=== PATIENT | male | born 1950 | race Hispanic/Latino ===

== ENCOUNTER → 2018-01-15 | Outpatient (CLI) | payer OTHER, MEDICARE ==
[~2018-01-15] MED LIST: ASPI-1197 PO; CLOP75TA14 PO; HONEY 1 APPL/ML TUBE TP ONE; INSU100I21 SQ; INSU200I SQ; LIDOCAINE/PRILOCAINE CREAM 5GM TUBE TP ONE; LOSA50TA37 PO; METF10004 PO; METO-408 PO; SIMV40TA5 PO; SULF1TAB3 PO; TAMS-1 PO
[2018-01-15 17:14] VITALS: BP 106/63
== END | disposition home or self-care (01) ==
LOC: WHH 14:55
PROVIDERS: ATTEND Family Medicine
DX: E11.622 Type 2 diabetes mellitus with other skin ulcer (principal); L89.313 Pressure ulcer of right buttock, stage 3; L98.411 Non-pressure chronic ulcer of buttock limited to breakdown of skin; G81.91 Hemiplegia, unspecified affecting right dominant side; I10 Essential (primary) hypertension; E11.51 Type 2 diabetes mellitus with diabetic peripheral angiopathy without gangrene; D64.9 Anemia, unspecified; Z86.73 Personal history of transient ischemic attack (TIA), and cerebral infarction without residual deficits
CPT/HCPCS: 11042; A6197; A6402; J3490

== ENCOUNTER → 2018-01-29 | Outpatient (CLI) | payer OTHER, MEDICARE ==
[~2018-01-29] MED LIST changes: -HONEY 1 APPL/ML TUBE TP ONE; -LIDOCAINE/PRILOCAINE CREAM 5GM TUBE TP ONE
[2018-01-29 15:36] VITALS: BP 125/68
== END | disposition home or self-care (01) ==
LOC: WHH 14:45
PROVIDERS: ATTEND Family Medicine
DX: E11.622 Type 2 diabetes mellitus with other skin ulcer (principal); L89.313 Pressure ulcer of right buttock, stage 3; L98.411 Non-pressure chronic ulcer of buttock limited to breakdown of skin; G81.91 Hemiplegia, unspecified affecting right dominant side; I10 Essential (primary) hypertension; E11.51 Type 2 diabetes mellitus with diabetic peripheral angiopathy without gangrene; D64.9 Anemia, unspecified; Z86.73 Personal history of transient ischemic attack (TIA), and cerebral infarction without residual deficits
CPT/HCPCS: A6196; A6402; G0463

== ENCOUNTER 2018-02-05 14:20 | Outpatient (CLI) | payer OTHER, MEDICARE ==
[2018-02-05 15:43] VITALS: BP 100/83
[2018-04-05] MEDS ORDERED: TAMS-1 PO (14:25)
[2018-04-05] MEDS ORDERED: INSU100I21 SQ ×2 (14:25)
[2018-04-05] MEDS ORDERED: SULF1TAB3 PO (14:25)
[2018-04-05] MEDS ORDERED: METF10004 PO (14:25)
[2018-04-05] MEDS ORDERED: LOSA50TA37 PO (14:25)
[2018-04-05] MEDS ORDERED: CLOP75TA14 PO (14:25)
[2018-04-05] MEDS ORDERED: INSU200I SQ (14:25)
[2018-04-05] MEDS ORDERED: ASPI-1197 PO (14:25)
[2018-04-05] MEDS ORDERED: METO-408 PO (14:25)
[2018-04-05] MEDS ORDERED: SIMV40TA5 PO (14:25)
== END 2018-02-05 17:00 | disposition home or self-care (01) ==
LOC: WHH 14:20
PROVIDERS: ATTEND Family Medicine
DX: E11.622 Type 2 diabetes mellitus with other skin ulcer (principal); L89.313 Pressure ulcer of right buttock, stage 3; L98.411 Non-pressure chronic ulcer of buttock limited to breakdown of skin; G81.91 Hemiplegia, unspecified affecting right dominant side; I10 Essential (primary) hypertension; E11.51 Type 2 diabetes mellitus with diabetic peripheral angiopathy without gangrene; D64.9 Anemia, unspecified; Z86.73 Personal history of transient ischemic attack (TIA), and cerebral infarction without residual deficits
CPT/HCPCS: G0463

== ENCOUNTER 2018-04-08 10:03 | Day surgery (SDC) | payer OTHER, MEDICARE ==
[2018-04-05 12:22] VITALS: BP 106/71
[2018-04-05 12:25] LABS: BASOPHILS % (AUTO) 0.5 % (0.0-5.0); EOSINOPHILS % (AUTO) 1.8 % (0.0-8.0); HEMATOCRIT 36.5 % (42-54); LYMPHOCYTES % (AUTO) 27.9 % (21.0-51.0); MEAN CORPUSCULAR HEMOGLOBIN 27.2 pg (27.0-33.0); MEAN CORPUSCULAR HGB CONC 33.2 g/dL (32.0-36.0); MEAN CORPUSCULAR VOLUME 81.9 fL (79-99); MONOCYTES % (AUTO) 7.7 % (3.0-13.0); NEUTROPHILS % (AUTO) 62.1 % (40.0-77.0); PLATELET COUNT (AUTO) 221 K/uL (130-400); RED BLOOD CELL COUNT(AUTO) 4.46 MIL/uL (4.50-6.20); RED CELL DISTRIBUTION WIDTH 14.4 % (11.0-15.5)
[2018-04-05 12:53] LABS: INR 0.93 (0.85-1.15); PROTHROMBIN TIME 9.8 SEC (9.6-11.6)
[2018-04-05 12:54] LABS: POTASSIUM 3.4 mmol/L (3.5-5.1)
[2018-04-05 13:23] LABS: APPEARANCE,URINE Clear (CLEAR); BILIRUBIN,URINE Negative (NEGATIVE); COLOR,URINE Yellow (YELLOW); GLUCOSE, URINE (UA) Negative (NEGATIVE); KETONES,URINE Negative (NEGATIVE); LEUKOCYTE ESTERASE ,URINE Negative (NEGATIVE); NITRATE,URINE Negative (NEGATIVE); OCCULT BLOOD,URINE Trace (NEGATIVE); PROTEIN,URINE POS 1+ (NEGATIVE); UROBILINOGEN,URINE 0.2 mg/dL (0.2-1.0)
[2018-04-05 13:30] LABS: BACTERIA,URINE Rare /HPF (None Seen); SQUAMOUS EPITHELIAL CELL,UR Rare /HPF (0-2); WBC,URINE 0-1 /HPF (0-1)
[~2018-04-08] VITALS: Ht 167.6 cm; Wt 78.0 kg
[2018-04-08] VITALS (14 sets, daily range): BP systolic 102–122; BP diastolic 52–68
[~2018-04-08 10:03] MED LIST changes: +CEFTRIAXONE SODIUM 1 GM IVP SCH; +GENTAMICIN 80 MG/NS 100 ML PB 100 ML IV SCH
[2018-04-08] MEDS ORDERED: SODIUM CHLORIDE 0.9% 1000ML 1,000 ML IV ONE (10:14)
[2018-04-08] MEDS ORDERED: GENTAMICIN 80 MG/NS 100 ML PB 100 ML IV SCH (10:30)
[2018-04-08] MEDS: CEFTRIAXONE SODIUM 1 GM ONE ×2 (10:56→14:17)
[2018-04-08] MEDS ORDERED: MIDAZOLAM HCL 1 MG/ML 2ML VIAL ONE (13:47)
[2018-04-08] MEDS ORDERED: PROPOFOL 10 MG/ML 20ML VIAL IV ONE (13:48)
[2018-04-08] MEDS ORDERED: FENTANYL CITRATE PF 50 MCG/1 ML 2ML VIAL ONE (13:48)
[2018-04-08] MEDS ORDERED: GLYCOPYRROLATE 0.2 MG/ML 5 ML VIAL ONE (14:50)
[2018-04-08] MEDS ORDERED: NEOSTIGMINE 5MG/5ML SYR IV ONE (14:50)
== END 2018-04-08 17:25 | disposition home or self-care (01) ==
LOC: DAH 10:03
PROVIDERS: ATTEND Urology
DX: N40.1 Benign prostatic hyperplasia with lower urinary tract symptoms (principal); N41.1 Chronic prostatitis; R33.8 Other retention of urine; E11.9 Type 2 diabetes mellitus without complications; I10 Essential (primary) hypertension; Z86.73 Personal history of transient ischemic attack (TIA), and cerebral infarction without residual deficits
CPT/HCPCS: 36415; 52648; 71045; 80048; 81001; 82948 ×2; 85025; 85610; 87088; 87186; 88305; 93005; 96365; A4354; A4358; A4600; J0696; J1580 ×2; J2250; J2704; J2710; J3010; J3490; J7030 ×2

== ENCOUNTER 2021-02-19 17:59 | Emergency (ER) | payer OTHER, MEDICARE ==
[~2021-02-19 17:59] MED LIST changes: -CEFTRIAXONE SODIUM 1 GM IVP SCH; -GENTAMICIN 80 MG/NS 100 ML PB 100 ML IV SCH; -LOSA50TA37 PO; +LOSA50TA64 PO; +METF-446 PO; -METF10004 PO; +SIMV-46 PO; -SIMV40TA5 PO
[2021-02-19 18:53] LABS: BASOPHILS % (AUTO) 0.6 % (0.0-5.0); EOSINOPHILS % (AUTO) 0.1 % (0.0-8.0); HEMATOCRIT 29.8 % (42-54); LYMPHOCYTES % (AUTO) 9.6 % (21.0-51.0); MEAN CORPUSCULAR HEMOGLOBIN 25.7 pg (27.0-33.0); MEAN CORPUSCULAR HGB CONC 30.2 g/dL (32.0-36.0); MEAN CORPUSCULAR VOLUME 85.1 fL (79-99); MONOCYTES % (AUTO) 6.2 % (3.0-13.0); PLATELET COUNT (AUTO) 640 K/uL (130-400); RED CELL DISTRIBUTION WIDTH 13.9 % (11.0-15.5); WHITE BLOOD COUNT (AUTO) 8.3 K/uL (4.8-10.8)
[2021-02-19 19:01] LABS: CREATININE 0.5 mg/dL (0.5-1.5)
[2021-02-19 19:11] LABS: ALBUMIN 2.2 g/dL (3.5-5.0); BILIRUBIN,TOTAL 0.3 mg/dL (0.2-1.0); TOTAL PROTEIN, SERUM 8.2 g/dL (6.0-8.3)
[2021-02-19] MEDS ORDERED: DIATR MEGLU/DIATRIZOATE SODIUM 30 ML BOTTLE ONE (19:23)
[2021-02-21] MEDS ORDERED: SANTO TP (19:26)
[2021-02-21] MEDS ORDERED: METO-408 PO (19:26)
== END 2021-02-19 22:58 | disposition home or self-care (01) ==
LOC: EDH 17:59
DX: Z43.1 Encounter for attention to gastrostomy (principal); I10 Essential (primary) hypertension; E78.00 Pure hypercholesterolemia, unspecified; Z86.73 Personal history of transient ischemic attack (TIA), and cerebral infarction without residual deficits
CPT/HCPCS: 36415; 74018; 74176; 80053; 84484; 85025; 99285; Q9963